=== PATIENT | male | born 1990 | race Caucasian/White ===

== ENCOUNTER 2019-03-07 03:29 | Emergency (ER) | payer OTHER ==
[2019-03-07] MEDS ORDERED: Clindamycin Phosphate in D5W 900 MG in Premix Bag 1 BAG IV ONE ×2 (03:59)
[2019-03-07] MEDS ORDERED: Sodium Chloride 0.9% 2.5 ML Syringe FLUSH PRN (03:59)
[2019-03-07] MEDS ORDERED: Dexamethasone 10 MG/ML SDV IVPUSH ONE (03:59)
[2019-03-07] MEDS ORDERED: Sodium Chloride 0.9% 10 ML Syringe FLUSH PRN (03:59)
[2019-03-07] MEDS ORDERED: Sodium Chloride 0.9% 1,000 ML IV ONE (03:59)
[2019-03-07] MEDS ORDERED: Lidocaine 2% Viscous Solution 15 ML Cup PO ONE (04:00)
[2019-03-07] MEDS ORDERED: Ketorolac 30 MG/ML SDV IVPUSH ONE (04:00)
--- NOTE | 2019-03-07 04:05 | EDM.PDOC ---
ED HPI GENERAL MEDICAL PROBLEM - General Chief Complaint: ENT Problem Stated Complaint: SORE THROAT, POSSIBLE STREP Time Seen by Provider: 03/07/19 03:54 - History of Present Illness INITIAL COMMENTS - FREE TEXT/NARRATIVE: HISTORY AND PHYSICAL: History of present illness: The patient is a 29-year-old male who had a sore throat and was seen in the clinic on Tuesday and had a negative strep test but was still given penicillin twice daily dosing and started that on Tuesday morning and has had a full 3 days of antibiotics and presents with persistent pain with swallowing more on the right side. He has never had a fever cough runny nose or upper respiratory symptoms and has had no abdominal pain nausea or vomiting. He did not get his influenza shot this year and he still has his tonsils. He says that he is able to eat or drink but not as much as he knows he needs to to stay hydrated and he does feel dehydrated and he saying that it is very challenging to swallow due to the discomfort. He does not have a headache but he does have anterior neck pain as well. Review of systems: As per history of present illness and below otherwise all systems reviewed and negative. Past medical history: As per history of present illness and as reviewed below otherwise noncontributory. Surgical history: As per history of present illness and as reviewed below otherwise noncontributory. Social history: No reported history of drug or alcohol abuse. Family history: As per history of present illness and as reviewed below otherwise noncontributory. Physical exam: General: Well-developed overweight man who is nontoxic and does not have hoarse or muffled voice and is not breathless. Vital signs are noted by me HEENT: Atraumatic, normocephalic, pupils reactive, negative for conjunctival pallor or scleral icterus, mucous membranes moist, throat has asymmetrical swelling with the right significantly greater than left with a shift of the uvula and fullness of the right peritonsillar area but no gross abscess is seen with some patchy exudates are seen bilaterally, there is some shotty anterior cervical adenopathy but no posterior adenopathy and no nuchal rigidity,, neck supple, nontender, trachea midline. Lungs: Clear to auscultation, breath sounds equal bilaterally, chest nontender. No wheezing or stridor Heart: S1S2, regular, and rhythm no overt murmurs Abdomen: Soft, nondistended, nontender. Negative for masses or hepatosplenomegaly. Negative for costovertebral tenderness. Pelvis: deferred Genitourinary: Deferred. Rectal: Deferred. Extremities: Atraumatic, no edema neurovascular unremarkable. Neuro: Awake, alert, oriented. Cranial nerves II through XII unremarkable. Cerebellum unremarkable. Motor and sensory unremarkable throughout. Exam nonfocal. Diagnostics: CBC BMP CT scan of the soft tissue neck rapid strep Therapeutics: IV placement IV fluids Decadron Toradol clindamycin viscous lidocaine Is aware of the CT scan findings indicating a peritonsillar abscess that needs drainage and that he will need to be transferred to [facility]. The CT scan has been forwarded to that institution. I discussed this case with the ENT specialist, Dr. Gerber, at 5:37 AM as well as with the ER provider Dr. Perez at 5:38 AM. They both have accepted the patient for transfer. I have offered the patient ALS transfer for IV fluids as he will be n.p.o. He says that he would like to see if he can get a ride and go by private car and as a CT scan does not indicate any compromise of the airway I would be comfortable with that as well but we would be removing the IV and he would need to know that he cannot eat or drink in route. Either way the patient will be going to [facility] and they are aware that he may be coming by private car or by ambulance pending him trying to get a ride. Impression: Right peritonsillar abscess Definitive disposition and diagnosis as appropriate pending reevaluation and review of above. 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 Pain Score (Numeric/FACES): 9 - Related Data Allergies Allergy/AdvReac Type Severity Reaction Status Date / Time No Known Allergies Allergy Verified 03/07/19 03:30 Home Meds: Home Meds Penicillin V Potassium 500 mg PO BID 03/07/19 [History] Past Medical History Endocrine/Metabolic History: Reports: Obesity/BMI 30+ - Past Surgical History Neurological Surgical History: Reports: Intracranial Social & Family History - Family History Family Medical History: Noncontributory - Tobacco Use Smoking Status *Q: Current Every Day Smoker Years of Tobacco use: 5 Packs/Tins Daily: 1 - Recreational Drug Use Recreational Drug Use: No ED ROS GENERAL - Review of Systems Review Of Systems: Comprehensive ROS is negative, except as noted in HPI. ED EXAM, GENERAL - Physical Exam Exam: See Below (see Dictation) Course - Vital Signs Last Recorded V/S: Last Vital Signs Temp 36.3 C 03/07/19 03:30 Pulse 96 03/07/19 03:30 Resp 18 03/07/19 03:30 BP 133/84 03/07/19 03:30 Pulse Ox 98 03/07/19 03:30 - Orders/Labs/Meds Orders: Active Orders 24 hr Category Date Time Status CULTURE STREP A CONFIRMATION [] Stat Lab 03/07/19 03:45 Results STREP SCRN A RAPID W CULT CONF [] Stat Lab 03/07/19 03:45 Results Sodium Chloride 0.9% [Normal Saline] 1,000 ml Med 03/07/19 05:45 Active IV ASDIRECTED Sodium Chloride 0.9% [Saline Flush] Med 03/07/19 03:59 Active 10 ml FLUSH ASDIRECTED PRN Sodium Chloride 0.9% [Saline Flush] Med 03/07/19 03:59 Active 2.5 ml FLUSH ASDIRECTED PRN Saline Lock Insert [OM.PC] Stat Oth 03/07/19 03:59 Ordered Medication Orders Sodium Chloride (Normal Saline) 1,000 mls @ 150 mls/hr IV ASDIRECTED PATRICK Last Admin: 03/07/19 05:48 Dose: 150 mls/hr Sodium Chloride (Saline Flush) 10 ml FLUSH ASDIRECTED PRN PRN Reason: Keep Vein Open Sodium Chloride (Saline Flush) 2.5 ml FLUSH ASDIRECTED PRN PRN Reason: Keep Vein Open Labs: Laboratory Tests 03/07/19 03/07/19 Range/Units 04:10 04:10 WBC 10.78 (4.0-11.0) K/uL RBC 4.88 (4.50-5.90) M/uL Hgb 15.5 (13.0-17.0) g/dL Hct 45.3 (38.0-50.0) % MCV 92.8 (80.0-98.0) fL MCH 31.8 (27.0-32.0) pg MCHC 34.2 (31.0-37.0) g/dL RDW Std Deviation 45.6 (28.0-62.0) fl RDW Coeff of Dyan 13 (11.0-15.0) % Plt Count 218 (150-400) K/uL MPV 9.90 (7.40-12.00) fL Neut % (Auto) 75.3 (48.0-80.0) % Lymph % (Auto) 13.3 L (16.0-40.0) % [place] % (Auto) 9.9 (0.0-15.0) % Eos % (Auto) 1.3 (0.0-7.0) % Baso % (Auto) 0.2 (0.0-1.5) % Neut # (Auto) 8.1 H (1.4-5.7) K/uL Lymph # (Auto) 1.4 (0.6-2.4) K/uL [place] # (Auto) 1.1 H (0.0-0.8) K/uL Eos # (Auto) 0.1 (0.0-0.7) K/uL Baso # (Auto) 0.0 (0.0-0.1) K/uL Nucleated RBC % 0.0 /100WBC Nucleated RBCs # 0 K/uL Sodium 142 (136-148) mmol/L Potassium 3.9 (3.5-5.1) mmol/L Chloride 104 (98-107) mmol/L Carbon Dioxide 29.4 (21.0-32.0) mmol/L BUN 14 (7.0-18.0) mg/dL Creatinine 1.0 (0.8-1.3) mg/dL Est Cr Clr Drug Dosing 139.84 mL/min Estimated GFR (MDRD) > 60.0 ml/min Glucose 93 (74-106) mg/dL Calcium 9.2 (8.5-10.1) mg/dL Meds: Medications Generic Name Dose Route Start Last Admin Trade Name Freq PRN Reason Stop Dose Admin Sodium Chloride 1,000 mls @ 150 mls/hr 03/07/19 05:45 03/07/19 05:48 Normal Saline IV 150 mls/hr ASDIRECTED PATRICK Administration Sodium Chloride 10 ml 03/07/19 03:59 Saline Flush FLUSH ASDIRECTED PRN Keep Vein Open Sodium Chloride 2.5 ml 03/07/19 03:59 Saline Flush FLUSH ASDIRECTED PRN Keep Vein Open Discontinued Medications Generic Name Dose Route Start Last Admin Trade Name Freq PRN Reason Stop Dose Admin Dexamethasone 10 mg 03/07/19 03:59 03/07/19 04:13 Dexamethasone IVPUSH 03/07/19 04:00 10 mg ONETIME ONE Administration Clindamycin Phosphate 900 mg/ 50 mls @ 100 mls/hr 03/07/19 03:59 03/07/19 04: 12 Premix IV 03/07/19 04:28 100 mls/hr ONETIME ONE Administration Sodium Chloride 1,000 mls @ 999 mls/hr 03/07/19 03:59 03/07/19 04:11 Normal Saline IV 03/07/19 04:59 999 mls/hr STAT ONE Administration Iopamidol 80 ml 03/07/19 05:06 03/07/19 05:07 Isovue-370 (76%) IVPUSH 03/07/19 05:07 80 ml ONETIME ONE Administration Ketorolac Tromethamine 30 mg 03/07/19 04:00 03/07/19 04:15 Toradol IVPUSH 03/07/19 04:01 30 mg ONETIME ONE Administration Lidocaine HCl 15 ml 03/07/19 04:00 03/07/19 04:15 Xylocaine 2% Viscous PO 03/07/19 04:01 15 ml ONETIME ONE Administration Departure - Departure Time of Disposition: 05:51 Disposition: DC/Tfer to Acute Hospital 02 Condition: Good Clinical Impression: Peritonsillar abscess - Discharge Information Referrals: PCP,Not In Area [Primary Care Provider] - Forms: ED Department Discharge Sepsis Event Note - Evaluation Sepsis Screening Result: No Definite Risk - Focused Exam Vital Signs: Vital Signs Temp Pulse Resp BP Pulse Ox 03/07/19 03:30 36.3 C 96 18 133/84 98 Date Exam was Performed: 03/07/19 Time Exam was Performed: 05:49 - My Orders Last 24 Hours: My Active Orders 03/07/19 03:45 CULTURE STREP A CONFIRMATION [RM] Stat STREP SCRN A RAPID W CULT CONF [RM] Stat 03/07/19 03:59 Sodium Chloride 0.9% [Saline Flush] 10 ml FLUSH ASDIRECTED PRN Sodium Chloride 0.9% [Saline Flush] 2.5 ml FLUSH ASDIRECTED PRN Saline Lock Insert [OM.PC] Stat 03/07/19 05:45 Sodium Chloride 0.9% [Normal Saline] 1,000 ml IV ASDIRECTED - Assessment/Plan Last 24 Hours: My Active Orders 03/07/19 03:45 CULTURE STREP A CONFIRMATION [] Stat STREP SCRN A RAPID W CULT CONF [] Stat 03/07/19 03:59 Sodium Chloride 0.9% [Saline Flush] 10 ml FLUSH ASDIRECTED PRN Sodium Chloride 0.9% [Saline Flush] 2.5 ml FLUSH ASDIRECTED PRN Saline Lock Insert [OM.PC] Stat 03/07/19 05:45 Sodium Chloride 0.9% [Normal Saline] 1,000 ml IV ASDIRECTED
[2019-03-07 04:33] LABS: BLOOD UREA NITROGEN,BUN 14 mg/dL (7.0-18.0); CARBON DIOXIDE,CO2 29.4 mmol/L (21.0-32.0); CHLORIDE,CL 104 mmol/L (98-107); GLUCOSE RANDOM 93 mg/dL (74-106); POTASSIUM,K 3.9 mmol/L (3.5-5.1); SODIUM,NA 142 mmol/L (136-148)
[2019-03-07] MEDS ORDERED: Iopamidol 755 Mg/ML 100 ML Bottle IVPUSH ONE (05:06)
--- NOTE | 2019-03-07 05:23 | CT ---
INDICATION: Pain, evaluate for peritonsillar abscess TECHNIQUE: CT soft tissue of the neck was acquired with IV contrast. 80 cc Isovue 370 COMPARISON: None FINDINGS: Skull base: Unremarkable. Pharynx: 2.0 centimeter x 2.0 centimeter right peritonsillar abscess. Larynx and trachea: Unremarkable. Salivary glands: Unremarkable. Thyroid gland: Unremarkable. Vessels: Unremarkable for age. Bones: Unremarkable for age. Misc: Bilateral mostly subcentimeter neck lymphadenopathy. Lung apices: Unremarkable. IMPRESSION: 2.0 centimeter x 2.0 centimeter right peritonsillar abscess. Bilateral mostly subcentimeter neck adenopathy. Dictated by Washington Bejarano MD @ 03/07/2019 5:21:17 AM Please note that all CT scans at this facility use dose modulation, iterative reconstruction, and/or weight-based dosing when appropriate to reduce radiation dose to as low as reasonably achievable. Dictated by: Washington Bejarano MD @ 03/07/2019 05:21:21 (Electronically Signed)
[2019-03-07] MEDS ORDERED: Sodium Chloride 0.9% 1,000 ML IV SCH (05:45)
== END 2019-03-07 06:50 ==
LOC: MW.ED 03:29
DX: J36 Peritonsillar abscess (principal); F17.210 Nicotine dependence, cigarettes, uncomplicated
CPT/HCPCS: 36415; 70491; 80048; 85025; 87081; 87880; 96361; 96365; 96375; 99284; A9270; J1100; J1885; J3490; J7030; Q9967

== ENCOUNTER 2019-03-09 16:35 | Emergency (ER) | payer OTHER ==
[2019-03-09] MEDS ORDERED: Ketorolac 30 MG/ML SDV IM ONE (19:20)
--- NOTE | 2019-03-09 19:23 | CT ---
INDICATION: Status post drainage of a tonsillar abscess 2 days ago. Recurrent pain TECHNIQUE: CT soft tissue of the neck was acquired without IV contrast. COMPARISON: 03/07/2019 FINDINGS: The study is limited given the lack of intravenous contrast. There is persistent asymmetrical enlargement of the right palatine tonsil. A discrete tonsillar collection is not clearly seen, however evaluation is limited without intravenous contrast. There is mild edema in the right parapharyngeal space. The nasopharynx, oropharynx, hypopharynx and larynx are otherwise patent. Slight asymmetrical medial deviation of the right true vocal fold may be positional. An enlarged right level 2 cervical lymph node is again seen on image 24, measuring 1.9 x 1.5 cm. The parotid, submandibular and sublingual glands are within normal limits. No discrete thyroid abnormality is seen. There are small osseous lucencies adjacent to the roots of some maxillary and mandibular teeth, compatible with periodontal disease. No acute osseous abnormalities are seen. The visualized lung apices are clear. An azygos lobe is noted. IMPRESSION: : A limited noncontrast examination. Persistent enlargement of the right palatine tonsil. A definite regional fluid collection is not seen, however evaluation is limited without contrast. Correlate with ENT evaluation. An enlarged right level 2 lymph node again seen. Slight asymmetrical medial deviation of the right true vocal fold may be positional, however correlate clinically. Dictated by Yonathan Barr MD @ 03/09/2019 7:20:51 PM Please note that all CT scans at this facility use dose modulation, iterative reconstruction, and/or weight-based dosing when appropriate to reduce radiation dose to as low as reasonably achievable. Dictated by: Yonathan Barr MD @ 03/09/2019 19:21:03 (Electronically Signed)
--- NOTE | 2019-03-09 20:01 | EDM.PDOC ---
ED [facility] GENERAL MEDICAL PROBLEM - General Chief Complaint: ENT Problem Stated Complaint: ABCESS ON TONSILS Time Seen by Provider: 03/09/19 19:25 Source of Information: Reports: Patient History Limitations: Reports: No Limitations - History of Present Illness INITIAL COMMENTS - FREE TEXT/NARRATIVE: Patient is a 29-year-old male with recent history of peritonsillar abscess which [facility]. Patient presents with pain in his throat. Patient states he feels the pain is slightly worsening and he was concerned that the abscess may be reaccumulating. Patient denies any fevers, difficulty breathing, difficulty swallowing, drainage from his throat. Patient has been compliant with oxycodone and clindamycin as prescribed by the ENT physician. Patient states he otherwise feels well and has no complaints. In addition to that documented in the HPI above, the additional ROS was obtained : Constitutional: Denies fevers or chills Eyes: Denies vision changes ENMT: Per HPI CV: Denies chest pain Resp: Denies SOB GI: Denies vomiting or diarrhea : Denies painful urination MSK: Denies recent trauma Skin: Denies new rashes Neuro: Denies new numbness or tingling or weakness Endocrine: Denies unexpected weight loss Heme: Denies bleeding disorders I have reviewed the triage vital signs Const: Well nourished, well developed, appears stated age Eyes: PERRL, no conjunctival injection HENT: Voice is normal, uvula is midline, no evidence of swollen tonsils or in the surrounding area. No drainage noted. No stridor. NCAT, Neck supple without meningismus CV: RRR, Warm, well-perfused extremities RESP: CTAB, Unlabored respiratory effort GI: soft, non-tender, non-distended, no masses MSK: No gross deformities appreciated Skin: Warm, dry. No rashes Neuro: Alert, digital strategy director II-XII grossly intact. Sensation and motor function of extremities grossly intact. Psych: Appropriate mood and affect Throat Pain Score (Numeric/FACES): 8 - Related Data Allergies Allergy/AdvReac Type Severity Reaction Status Date / Time No Known Allergies Allergy Verified 03/07/19 03:30 Home Meds: Home Meds Clindamycin HCl 300 mg PO 03/09/19 [History] Past Medical History - Past Health History Medical/Surgical History: Denies Medical/Surgical History HEENT History: Reports: Other (See Below) Other HEENT History: peritonsil abcess Endocrine/Metabolic History: Reports: Obesity/BMI 30+ - Past Surgical History Neurological Surgical History: Reports: Intracranial Social & Family History - Family History Family Medical History: Noncontributory - Tobacco Use Smoking Status *Q: Current Every Day Smoker Years of Tobacco use: 4 Packs/Tins Daily: 0.5 - Recreational Drug Use Recreational Drug Use: No ED ROS ENT - Review of Systems Review Of Systems: See Below ED EXAM, ENT - Physical Exam Exam: See Below Course - Vital Signs Last Recorded V/S: Last Vital Signs Temp 36.1 C 03/09/19 18:57 Pulse 74 03/09/19 18:57 Resp 17 03/09/19 18:57 BP 150/70 H 03/09/19 18:57 Pulse Ox 97 03/09/19 18:57 - Orders/Labs/Meds Meds: Medications Discontinued Medications Generic Name Dose Route Start Last Admin Trade Name Freq PRN Reason Stop Dose Admin Ketorolac Tromethamine 30 mg 03/09/19 19:20 03/09/19 19:31 Toradol IM 03/09/19 19:21 30 mg ONETIME ONE Administration Departure - Departure Time of Disposition: 19:58 Disposition: Home, Self-Care 01 Condition: Good Clinical Impression: Throat pain in adult - Discharge Information Referrals: PCP,None [Primary Care Provider] - Sepsis Event Note - Evaluation Sepsis Screening Result: No Definite Risk - Focused Exam Vital Signs: Vital Signs Temp Pulse Resp BP Pulse Ox 03/09/19 18:57 36.1 C 74 17 150/70 H 97 03/09/19 17:10 36.3 C 92 20 137/90 94 L Date Exam was Performed: 03/09/19 Time Exam was Performed: 19:55 - Assessment/Plan Assessment:: Patient is 29-year-old male with a recent history of peritonsillar abscess. Patient had CT scan ordered and performed before my arrival. CT scan did not demonstrate any evidence of fluid collection in a peritonsillar areas. Although it is noted that this scan is limited by lack of IV contrast. At this point in time, my suspicion for reaccumulation of abscess is low given the patient's physical exam and CT scan. I explained these findings to patient as well as the risks and benefits of having a CT scan repeated with IV contrast. Shared decision-making was used and the patient wished to utilize supportive care and antibiotics as an outpatient as opposed to having CT scan with IV contrast performed. I believe this is reasonable given my exam and viewing of the CT scan. Patient continue clindamycin as well as initiate some ibuprofen for pain control. Patient given strict return precautions to return immediately for worsening of his symptoms. All question addressed and answered. Patient agrees with plan.
== END 2019-03-09 20:05 | disposition home or self-care (01) ==
LOC: MW.ED 16:35
DX: R07.0 Pain in throat (principal); E66.9 Obesity, unspecified; Z68.33 Body mass index [BMI] 33.0-33.9, adult; F17.210 Nicotine dependence, cigarettes, uncomplicated
CPT/HCPCS: 70490; 96372; 99283; J1885

== ENCOUNTER 2019-03-10 16:56 | Emergency (ER) | payer OTHER ==
--- NOTE | 2019-03-10 18:26 | EDM.PDOC ---
ED HPI GENERAL MEDICAL PROBLEM - General Chief Complaint: ENT Problem Stated Complaint: ABCESS ON TONSILS Time Seen by Provider: 03/10/19 18:25 Source of Information: Reports: Patient History Limitations: Reports: No Limitations - History of Present Illness INITIAL COMMENTS - FREE TEXT/NARRATIVE: HISTORY AND PHYSICAL: History of present illness: Patient is a 29-year-old male presents to the ED with complaint of sore throat. He recently had a peritonsillar abscess drained in [place] on 03/07. He was seen yesterday for pain, he had a soft tissue neck which did show a persistent asymmetrical enlargement or right palantine tonsil without discrete tonsillar collection. The providers physical exam notes no tonsillar enlargement. Patient states his pain is worse today than it was prior to having it drained. He is taking antibiotic as prescribed. Review of systems: As per history of present illness and below otherwise all systems reviewed and negative. Past medical history: As per history of present illness and as reviewed below otherwise noncontributory. Surgical history: As per history of present illness and as reviewed below otherwise noncontributory. Social history: No reported history of drug or alcohol abuse. Family history: As per history of present illness and as reviewed below otherwise noncontributory. Physical exam: General: Patient sitting comfortably in no acute distress and nontoxic appearing HEENT: The right tonsil is swollen with uvular deviation. Hot potato voice noted. Atraumatic, normocephalic, pupils reactive, negative for conjunctival pallor or scleral icterus, mucous membranes moist, throat clear, neck supple, nontender, trachea midline. No meningeal signs. Lungs: Clear to auscultation, breath sounds equal bilaterally, chest nontender. Heart: S1S2, regular, negative for clicks, rubs, or overt murmur. Abdomen: Soft, nondistended, nontender. Negative for masses or hepatosplenomegaly. Negative for costovertebral tenderness. No rigidity, rebound , guarding. Pelvis: Stable nontender. Genitourinary: Deferred. Rectal: Deferred. Extremities: Atraumatic, negative for cords or calf pain. Neurovascular unremarkable. Neuro: Awake, alert, oriented. Cranial nerves II through XII unremarkable. Cerebellum unremarkable. Motor and sensory unremarkable throughout. Exam nonfocal. Notes: Diagnostics: [] Therapeutics: [] Prescriptions: Impression: Peritonsillar abscess Plan: Discussed with Dr. Gerber, ENT, he advised patient be sent to [facility] for drainage. Dr. Carlton, ER, accepted patient for transfer via ground EMS. Definitive disposition and diagnosis as appropriate pending reevaluation and review of above. Throat Pain Score (Numeric/FACES): 9 - Related Data Allergies Allergy/AdvReac Type Severity Reaction Status Date / Time No Known Allergies Allergy Verified 03/10/19 17:06 Home Meds: Home Meds Clindamycin HCl 300 mg PO 03/09/19 [History] Ibuprofen 400 mg PO Q6HR #36 tablet 03/09/19 [Rx] Past Medical History - Past Health History Medical/Surgical History: Denies Medical/Surgical History HEENT History: Reports: Other (See Below) Other HEENT History: peritonsil abcess Endocrine/Metabolic History: Reports: Obesity/BMI 30+ - Infectious Disease History Infectious Disease History: Reports: None - Past Surgical History Neurological Surgical History: Reports: Intracranial Social & Family History - Family History Family Medical History: Noncontributory - Tobacco Use Smoking Status *Q: Current Every Day Smoker Years of Tobacco use: 5 Packs/Tins Daily: 0.5 - Caffeine Use Caffeine Use: Reports: Coffee, Energy Drinks, Soda, Tea - Recreational Drug Use Recreational Drug Use: No ED ROS ENT - Review of Systems Review Of Systems: Comprehensive ROS is negative, except as noted in HPI. ED EXAM, ENT - Physical Exam Exam: See Below (see dictation) Course - Vital Signs Last Recorded V/S: Last Vital Signs Temp 96.9 F 03/10/19 17:06 Pulse 106 H 03/10/19 17:06 Resp 18 03/10/19 17:06 BP 122/95 H 03/10/19 17:06 Pulse Ox 95 03/10/19 17:06 Departure - Departure Time of Disposition: 18:43 Disposition: DC/Tfer to Acute Hospital 02 Condition: Good Clinical Impression: Peritonsillar abscess - Discharge Information Referrals: PCP,None [Primary Care Provider] - Forms: ED Department Discharge Sepsis Event Note - Evaluation Sepsis Screening Result: No Definite Risk - Focused Exam Vital Signs: Vital Signs Temp Pulse Resp BP Pulse Ox 03/10/19 17:06 96.9 F 106 H 18 122/95 H 95 Date Exam was Performed: 03/10/19 Time Exam was Performed: 18:42
== END 2019-03-10 19:40 ==
LOC: MW.ED 16:56
DX: J36 Peritonsillar abscess (principal); F17.210 Nicotine dependence, cigarettes, uncomplicated
CPT/HCPCS: 99282; 99284